=== PATIENT | male | born 1985 | race African-American/Black ===

== ENCOUNTER 2024-08-25 06:20 | Emergency (ER) | payer OTHER ==
[~2024-08-25] VITALS: Ht 188 cm; Wt 83.9 kg
[2024-08-25 06:28] VITALS: PULSE 67; RESP 21
[2024-08-25] MEDS: Morphine 4mg INJECTION 4 MG/ML INJ IM ONE (07:17)
[2024-08-25] MEDS: DICYCLOMINE HCL 20 MG/2 ML VIAL IM ONE (07:17)
[2024-08-25] MEDS: ONDANSETRON HCL 4 MG ORAL DISINTEGRATING TAB PO ONE (07:17)
[2024-08-25] MEDS ORDERED: IOPAMIDOL 370 MG/ML 100 ML INFUS..BTL INJ ONE (07:34)
[2024-08-25] MEDS ORDERED: KETOROLAC TROMETHAMINE 60 MG/2 ML VIAL ONE (08:26)
[2024-08-25] MEDS: PROMETHAZINE HCL (IM) 25 MG/ML VIAL IM ONE (08:35)
[2024-08-25] MEDS: KETOROLAC TROMETHAMINE 60 MG/2 ML VIAL IM ONE (08:35)
[2024-08-25] MEDS: FENTANYL CITRATE/PF 100MCG/2 ML INJ IV ONE (08:56)
[2024-08-25] MEDS ORDERED: ULTRAM 50MG50 MG PO (10:13)
[2024-08-25 10:28] VITALS: BP 146/73; PULSE 81; RESP 20; TEMP 98.5; O2SAT 100
== END 2024-08-25 10:27 | disposition home or self-care (01) ==
LOC: FSED 07:02
DX: R10.13 Epigastric pain (principal); K80.20 Calculus of gallbladder without cholecystitis without obstruction; R91.1 Solitary pulmonary nodule; K76.0 Fatty (change of) liver, not elsewhere classified
CPT/HCPCS: 71250; 74176; 76705; 80053; 80076; 81003; 84484; 85025; 85379; 93005; 96372; 99283; J0500; J1885; J2270; J2550; J3010; Q0162; Q9967